=== PATIENT | female | born 1955 | race Hispanic/Latino ===

== ENCOUNTER → 2019-10-12 | Outpatient (CLI) | payer SELFPAY ==
[~2019-10-12] VITALS: Ht 153.7 cm; Wt 84.4 kg
[~2019-10-12] MED LIST: ASPI-484 PO; ATOR20TA PO; DIGO250T3 PO; GABA100C7 PO; LEVO75TA6 PO; LOSA50TA14 PO; MULT-484 PO; NPH,100V SQ; OMEP20TA9 PO
[2019-10-12 15:40] VITALS: BP 126/69
--- NOTE | 2019-10-12 16:09 | PCM.EKG ---
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
[2019-10-12 16:25] LABS: BASOPHIL % 0.3 % (0.0-0.2); EOSINOPHIL # 0.2 10^3/uL (0.0-0.2); EOSINOPHIL % 2.6 % (0.0-5.0); LYMPHOCYTES # 2.41 10^3/uL1 (1.0-4.8); LYMPHOCYTES % 27.2 % (24.0-44.0); MONOCYTES # 0.5 10^3/uL (0.3-0.8); MONOCYTES % 5.3 % (5.0-12.0); NEUTROPHIL # 5.7 10^3/uL (1.8-7.7); NEUTROPHILS % 64.5 % (41.0-85.0); PLATELET COUNT 240 10^3/uL (150-400); RED CELL DISTRIBUTION WIDTH 13.2 % (11.5-14.5)
[2019-10-12 16:40] LABS: CALCIUM 10.4 mg/dL (8.4-10.5); CARBON DIOXIDE 29.3 mmol/L (20.0-32)
--- NOTE | 2019-10-13 15:32 | NUR ---
Ortho Class Education information given to pt. Family verbalized they would review information with patient due to pt being chinese speaking only. Signed: 10/13/19 at 1534 by THERESA Valentin OT Addendum: 10/13/19 at 1536 by THERESA Valentin OT Education issued on 10/12/19 per Olive instructions. Signed: 10/13/19 at 1536 by THERESA Valentin OT
== END | disposition home or self-care (01) ==
LOC: LAB 08:00 → EDSTATUS 10-24 05:00
PROVIDERS: ATTEND Orthopaedic Surgery
DX: M17.11 Unilateral primary osteoarthritis, right knee (principal)
CPT/HCPCS: 36415; 80053; 80162; 83036; 85025; 87070; 93005